=== PATIENT | female | born 1975 | race Caucasian/White ===

== ENCOUNTER 2018-12-28 22:49 | Emergency (ER) | payer OTHER ==
[~2018-12-28] VITALS: Ht 157.5 cm; Wt 61.2 kg
[2018-12-28 23:03] VITALS: BP 114/73
--- NOTE | 2018-12-28 23:06 | NUR ---
TO LOBBY A/W BED , WILFREDO CEDEÑO NOTED
--- NOTE | 2018-12-28 23:44 | NUR ---
PT AMBULATED TO ER BED 03
--- NOTE | 2018-12-29 | NUR ---
PT IS A 43 Y/O FEMALE WHO PRESENTS TO THE ED C/O RASH. PER PT HAD THIS ISSUE X1 WEEK. PT DENIES PAIN AT THIS TIME. PT DENIES CP, SOB, N/V/D. PT AWKAE AND ALERT, RR EVEN/UNLABRED. PT REPOSITIONED FOR COMFORT, BED IN LOWEST POSITION. ER MD DR. KUMAR NOTIFIED. WILL CONTINUE TO MONITOR.
[2018-12-29 00:55] VITALS: BP 119/87
--- NOTE | 2018-12-29 00:55 | NUR ---
Patient discharged with v/s stable. Written and verbal after care instructions given and explained. Patient alert, oriented and verbalized understanding of instructions. Ambulatory with steady gait. All questions addressed prior to discharge. ID band removed. Patient advised to follow up with PMD. Rx of CALAMINE LOTION given. Patient educated on indication of medication including possible reaction and side effects. Opportunity to ask questions provided and answered.
== END 2018-12-29 00:28 | disposition home or self-care (01) ==
LOC: MED 22:49
DX: B09 Unspecified viral infection characterized by skin and mucous membrane lesions (principal)
CPT/HCPCS: 99283

== ENCOUNTER 2021-08-29 12:06 | Emergency (ER) | payer OTHER ==
[~2021-08-29] VITALS: Ht 154.9 cm; Wt 68.0 kg
--- NOTE | 2021-08-29 12:16 | NUR ---
PT AMBULATED TO ER BED 11
[2021-08-29 12:23] VITALS: BP 120/58
[2021-08-29] MEDS ORDERED: ACETAMINOPHEN EXTRA STRENGTH 500 MG TAB PO ONE (13:40)
[2021-08-29] MEDS ORDERED: IBUPROFEN 600 MG TAB PO ONE (13:40)
--- NOTE | 2021-08-29 13:41 | NUR ---
45 Y/O FEMALE C/O HEADACHE SINCE SUNDAY. WITH NAUSEA. PT STATES 5/10 PAIN. DENIES VOMITING OR DIARRHEA. ABD SOFT NON TENDER. SKIN WARM AND DRY. MEDHX: DENIES NKA
[2021-08-29] MEDS ORDERED: IBUP-1842 PO (14:05)
[2021-08-29] MEDS ORDERED: ACET-10509 PO (14:05)
--- NOTE | 2021-08-29 14:20 | NUR ---
Patient discharged with v/s stable. Written and verbal after care instructions ABOUT TENSION HEADACHE given and explained. Patient alert, oriented and verbalized understanding of instructions. Ambulatory with steady gait. All questions addressed prior to discharge. ID band removed. Patient advised to follow up with PMD. Rx of TYLENOL EXTRA STRENGTH AND IBUPROFEN given. Patient educated on indication of medication including possible reaction and side effects. Opportunity to ask questions provided and answered.
== END 2021-08-29 14:20 | disposition home or self-care (01) ==
LOC: MED 12:06
DX: G44.209 Tension-type headache, unspecified, not intractable (principal); Z79.899 Other long term (current) drug therapy
CPT/HCPCS: 81002; 81025; 99283

== ENCOUNTER 2024-07-07 18:53 | Emergency (ER) | payer MEDICAID, OTHER ==
[~2024-07-07] VITALS: Ht 152.4 cm; Wt 64.9 kg
[~2024-07-07 18:53] MED LIST: ACET500T99 PO; IBUP-1842 PO
[2024-07-07 19:06] VITALS: BP 110/70; PULSE 67; RESP 16; TEMP 98.8; O2SAT 96
[2024-07-07] MEDS ORDERED: CARB15DR61 RIGHT EAR (20:34)
[2024-07-07] MEDS: ONDANSETRON 4 MG ODT PO ONE (21:08)
== END 2024-07-07 21:20 | disposition home or self-care (01) ==
LOC: MED 18:53
DX: H61.21 Impacted cerumen, right ear (principal); R07.89 Other chest pain; Z79.899 Other long term (current) drug therapy
CPT/HCPCS: 69209; 99283; Q0162